=== PATIENT | female | born 1945 | race Two or more races ===

== ENCOUNTER 2022-01-12 07:37 | Outpatient (CLI) | payer OTHER ==
[~2022-01-12 07:37] MED LIST: FOXAMAX PO; MACROBID 100 M100 MG PO; PLAQUENIL PO; SYNTHROID50 MCG PO; ULTRACET PO
== END 2022-01-12 07:44 | disposition home or self-care (01) ==
LOC: RAD 07:37
PROVIDERS: ATTEND Orthopaedic Surgery
DX: M25.562 Pain in left knee (principal)

== ENCOUNTER 2022-01-16 08:42 | Outpatient (CLI) | payer OTHER | END 2022-01-16 08:43 | disposition home or self-care (01) | LOC: NUCLEAR 08:42 | PROVIDERS: ATTEND Orthopaedic Surgery | DX: M81.0 Age-related osteoporosis without current pathological fracture (principal) ==

== ENCOUNTER 2022-01-31 07:26 | Outpatient (CLI) | payer OTHER | END 2022-01-31 15:34 | disposition home or self-care (01) | LOC: LAB 07:26 | PROVIDERS: ATTEND Orthopaedic Surgery | DX: D64.9 Anemia, unspecified (principal); E88.9 Metabolic disorder, unspecified; D68.8 Other specified coagulation defects; N39.0 Urinary tract infection, site not specified; A49.02 Methicillin resistant Staphylococcus aureus infection, unspecified site; Z76.89 Persons encountering health services in other specified circumstances; I49.9 Cardiac arrhythmia, unspecified; I10 Essential (primary) hypertension ==

== ENCOUNTER 2022-02-09 07:42 | Outpatient (CLI) | payer OTHER | END 2022-02-09 07:43 | disposition home or self-care (01) | LOC: LAB 07:42 | PROVIDERS: ATTEND Orthopaedic Surgery | DX: D68.8 Other specified coagulation defects (principal); Z03.818 Encounter for observation for suspected exposure to other biological agents ruled out ==

== ENCOUNTER 2022-06-07 09:26 | Outpatient (CLI) | payer OTHER | END 2022-06-07 23:00 | disposition home or self-care (01) | LOC: LAB 09:26 | PROVIDERS: ATTEND Orthopaedic Surgery | DX: E55.9 Vitamin D deficiency, unspecified (principal); M85.9 Disorder of bone density and structure, unspecified; E56.1 Deficiency of vitamin K; E21.3 Hyperparathyroidism, unspecified; E88.9 Metabolic disorder, unspecified; M81.8 Other osteoporosis without current pathological fracture ==

== ENCOUNTER 2022-10-04 10:10 | Outpatient (CLI) | payer OTHER | END 2022-10-04 10:17 | disposition home or self-care (01) | LOC: RAD 10:10 | PROVIDERS: ATTEND Orthopaedic Surgery | DX: M79.605 Pain in left leg (principal) ==

== ENCOUNTER → 2023-02-14 08:24 | Outpatient (CLI) | payer OTHER ==
[2023-02-14 10:13] LABS: ALBUMIN 3.6 gm/dL (3.4-5.0); BILIRUBIN TOTAL 0.44 mg/dL (0.3-1.2); CALCIUM 8.6 mg/dL (8.5-10.1); CREATININE SERUM 0.62 mg/dL (0.55-1.02); GFR 93.34; GLOBULINA 3.3 G/DL (2.4-3.5); POTASSIUM 4.42 mEq/L (3.5-5.1); TOTAL PROTEIN 6.9 gm/dL (6.4-8.2)
== END | disposition home or self-care (01) ==
LOC: LAB 08:24
PROVIDERS: ATTEND Orthopaedic Surgery
DX: E55.9 Vitamin D deficiency, unspecified (principal); M85.9 Disorder of bone density and structure, unspecified; E56.1 Deficiency of vitamin K; E21.3 Hyperparathyroidism, unspecified; M81.8 Other osteoporosis without current pathological fracture; E88.89 Other specified metabolic disorders

== ENCOUNTER 2023-05-30 09:25 | Outpatient (CLI) | payer OTHER | END 2023-05-30 09:26 | disposition home or self-care (01) | LOC: EKG 09:25 | DX: I70.0 Atherosclerosis of aorta (principal) ==

== ENCOUNTER → 2023-06-01 08:37 | Outpatient (CLI) | payer OTHER ==
[2023-06-01 09:08] LABS: HEMATOCRIT 35.8 % (36.0-45.00); MEAN CELL VOLUME 87.7 fL (80.00-100.00); MEAN CORPUSCULAR HEMOGLOBIN 29.6 pg (27.00-32.0); MEAN CORPUSCULAR HGB CONC 33.7 g/dl (32.0-36.0); PLATELET COUNT 246 K/uL (150-450); RED BLOOD COUNT 4.08 M/uL (4.00-6.00); RED CELL DISTRIBUTION WIDTH 13.4 % (11.5-14.5)
[2023-06-01 09:32] LABS: ALBUMIN 3.8 gm/dL (3.4-5.0); BILIRUBIN TOTAL 0.58 mg/dL (0.3-1.2); CREATININE SERUM 0.66 mg/dL (0.55-1.02); GFR 86.61; GLOBULINA 3.5 G/DL (2.4-3.5); POTASSIUM 4.01 mEq/L (3.5-5.1); TOTAL PROTEIN 7.3 gm/dL (6.4-8.2)
[2023-06-01 09:40] LABS: URINE APPEARANCE Clear; URINE BILIRRUBIN Negative (NEGATIVE); URINE BLOOD Negative; URINE COLOR Yellow; URINE GLUCOSE Negative (NEGATIVE); URINE LEUKOCYTE Trace; URINE NITRATE Negative; URINE PROTEIN Negative (NEGATIVE); URINE UROBILINOGEN 0.2 E.U./dl
[2023-06-01 09:43] LABS: URINE BACTERIA 47.7 uL (0.0-1933); URINE RBC 3.8 uL (0.0-20.8)
[2023-06-01 09:56] LABS: URINE EPITHELIAL CELLS 1.3 uL (0.0-38.8); URINE WBC 1.6 uL (0.0-23.2)
== END | disposition home or self-care (01) ==
LOC: LAB 08:37
DX: I11.9 Hypertensive heart disease without heart failure (principal)

== ENCOUNTER 2024-10-03 10:27 | Outpatient (CLI) | payer OTHER | END 2024-10-03 10:32 | disposition home or self-care (01) | LOC: RAD 10:27 | DX: R06.00 Dyspnea, unspecified (principal) ==

== ENCOUNTER 2024-11-17 07:19 | Outpatient (CLI) | payer OTHER | END 2024-11-17 07:20 | disposition home or self-care (01) | LOC: NUCLEAR 07:19 | DX: R07.9 Chest pain, unspecified (principal) | CPT/HCPCS: 78452; 93017; A9500 ==

== ENCOUNTER 2025-02-17 10:49 | Outpatient (CLI) | payer OTHER | END 2025-02-17 10:50 | disposition home or self-care (01) | LOC: NUCLEAR 10:49 | PROVIDERS: ATTEND Internal Medicine Rheumatology | DX: M81.0 Age-related osteoporosis without current pathological fracture (principal) ==